=== PATIENT | male | born 1965 | race African-American/Black ===

== ENCOUNTER 2017-05-21 01:46 | Inpatient (IN) ==
[2017-05-21] MEDS ORDERED: methylPREDNISolone SOD SUC 125 MG/2 ML VIAL IV STA (02:57)
[2017-05-21] MEDS ORDERED: ALBUTEROL NEB SOLN 5 MG/ML 20 ML/BOTTLE CONT NEB STA (03:06)
[2017-05-21] MEDS ORDERED: methylPREDNISolone SOD SUC 125 MG/2 ML VIAL ONE (03:10)
[2017-05-21 04:01] LABS: Basophils % 0.3 % (0.0-0.8); Eosinophils # 0.4 10*3/uL (0.0-0.87); Hemoglobin 13.3 GM/DL (14.0-18.0); Immature Granulocytes % 0.4 %; Immature Granulocytes Absolute 0.04 #; Lymphocytes # 2.6 10*3/uL (1.4-4.0); Mean Corpuscular HGB Conc 34.1 GM/DL (32-36); Mean Corpuscular Hemoglobin 30 PG (27-34); Mean Corpuscular Volume 87.1 FL (87-102); Mean Platelet Volume 11.6 FL (9.6-12.0); Monocytes # 0.8 10*3/uL (0.11-0.8); Monocytes % 7.4 % (1.7-12.7); Neutrophils # 6.9 10*3/uL (1.4-7.4); Neutrophils % 63.9 % (38.7-73.9); Platelet Count 210 T/CUMM (130-400); Red Blood Count 4.48 MC/CUMM (3.8-5.5); White Blood Count 10.8 T/CUMM (4-12)
[2017-05-21 04:49] LABS: Alanine Aminotransferase 34 U/L (16-61); Albumin 3.4 G/DL (3.4-5.0); Alkaline Phosphatase 97 U/L (45-117); Aspartate Amino Transferase 19 U/L (0-37); Bilirubin,Total < 0.39 MG/DL (0.2-1.0); Blood Urea Nitrogen 18 MG/DL (7-18); Glucose 97 MG/DL (74-106); Osmolality,Calculated 284.1 MOS/KG (273-304); Potassium 4.1 MMOL/L (3.5-5.1); Sodium 142 MMOL/L (136-145); Total Protein 6.3 G/DL (6.4-8.3)
[2017-05-21 04:51] LABS: Troponin I Only < 0.015 NG/ML (0.00-0.045)
[2017-05-21] MEDS ORDERED: cefTRIAXone 1,000 MG in SODIUM CHLORIDE 0.9% 100 ML IV STA (05:22)
[2017-05-21] MEDS ORDERED: AZITHROMYCIN INJ 500 MG in SODIUM CHLORIDE 0.9% 250 ML IV STA (05:22)
[2017-05-21] MEDS ORDERED: AZITHROMYCIN 500 MG VIAL IV ONE (05:25)
[2017-05-21] MEDS ORDERED: cefTRIAXone 1,000 MG VIAL ONE (05:26)
[2017-05-21] MEDS ORDERED: ALBUTEROL 2.5 MG/3 ML NEB RESP TX PRN (05:46)
[2017-05-21] MEDS ORDERED: ACETAMINOPHEN 325 MG TABLET PO PRN (05:54)
[2017-05-21] MEDS ORDERED: ONDANSETRON 4 MG/2 ML VIAL IV PRN (05:54)
[2017-05-21] MEDS: ALBUTEROL 2.5 MG/3 ML NEB RESP TX SCH ×4 (09:05→21:35)
[2017-05-21] MEDS: methylPREDNISolone SOD SUC 125 MG/2 ML VIAL IV SCH ×3 (10:49→21:15)
[2017-05-21] MEDS: PANTOPRAZOLE 40 MG TABLET PO SCH (10:50)
[2017-05-21] MEDS: ENOXAPARIN 40 MG/0.4 ML SYRINGE SUBCUT SCH (10:50)
[2017-05-21] MEDS: risperiDONE 1 MG TABLET PO SCH ×2 (10:50→21:15)
[2017-05-21] MEDS: amLODIPine 5 MG TABLET PO SCH (10:50)
[2017-05-21] MEDS: MONTELUKAST 10 MG TABLET PO SCH (21:15)
[2017-05-22] MEDS: ALBUTEROL 2.5 MG/3 ML NEB RESP TX SCH ×6 (00:44→21:19)
[2017-05-22] MEDS: methylPREDNISolone SOD SUC 125 MG/2 ML VIAL IV SCH ×4 (03:29→21:52)
[2017-05-22 03:49] LABS: Basophils % 0.1 % (0.0-0.8); Hematocrit 40.7 VOL% (42.0-52.0); Hemoglobin 13.8 GM/DL (14.0-18.0); Immature Granulocytes % 1.4 %; Immature Granulocytes Absolute 0.22 #; Lymphocytes # 0.9 10*3/uL (1.4-4.0); Lymphocytes % 5.3 % (21.2-54.2); Mean Corpuscular HGB Conc 33.9 GM/DL (32-36); Mean Corpuscular Hemoglobin 29 PG (27-34); Mean Corpuscular Volume 86.8 FL (87-102); Monocytes # 0.4 10*3/uL (0.11-0.8); Monocytes % 2.2 % (1.7-12.7); Neutrophils # 14.7 10*3/uL (1.4-7.4); Platelet Count 220 T/CUMM (130-400); Red Blood Count 4.69 MC/CUMM (3.8-5.5); Red Cell Distribution Width 15.1 % (9.3-17.3); White Blood Count 16.2 T/CUMM (4-12)
[2017-05-22 04:02] LABS: Calcium 8.5 MG/DL (8.5-10.1); Osmolality,Calculated 284.4 MOS/KG (273-304); Potassium 4.3 MMOL/L (3.5-5.1)
[2017-05-22 05:31] LABS: Band Neutrophils 2 % (0-10); Hypochromasia 1+; Lymphocytes 6 % (20-55); Microcytosis 1+; Platelet Estimate Normal; Segmented Neutrophils 88 % (50-85); Total Cells Counted 100
[2017-05-22] MEDS ORDERED: AZITHROMYCIN INJ 500 MG in SODIUM CHLORIDE 0.9% 250 ML IV SCH (06:00)
[2017-05-22] MEDS: cefTRIAXone 1,000 MG in SYRINGE 1 EACH IV SCH (06:33)
[2017-05-22] MEDS: ENOXAPARIN 40 MG/0.4 ML SYRINGE SUBCUT SCH (06:37)
[2017-05-22] MEDS: risperiDONE 1 MG TABLET PO SCH ×2 (09:04→21:51)
[2017-05-22] MEDS: PANTOPRAZOLE 40 MG TABLET PO SCH (09:04)
[2017-05-22] MEDS: amLODIPine 5 MG TABLET PO SCH (09:04)
[2017-05-22] MEDS ORDERED: AMINOPHYLLINE 250 MG in SODIUM CHLORIDE 0.9% 100 ML IV ONE (10:01)
[2017-05-22] MEDS: AMINOPHYLLINE 500 MG in SODIUM CHLORIDE 0.9% 480 ML IV SCH ×2 (13:17→21:54)
[2017-05-22] MEDS: MONTELUKAST 10 MG TABLET PO SCH (21:51)
[2017-05-23] MEDS: ALBUTEROL 2.5 MG/3 ML NEB RESP TX SCH ×5 (01:09→15:18)
[2017-05-23] MEDS: methylPREDNISolone SOD SUC 125 MG/2 ML VIAL IV SCH ×4 (03:20→20:25)
[2017-05-23] MEDS: ENOXAPARIN 40 MG/0.4 ML SYRINGE SUBCUT SCH (05:50)
[2017-05-23] MEDS: AMINOPHYLLINE 500 MG in SODIUM CHLORIDE 0.9% 480 ML IV SCH ×2 (05:51→17:07)
[2017-05-23] MEDS: cefTRIAXone 1,000 MG in SYRINGE 1 EACH IV SCH (05:52)
[2017-05-23] MEDS: amLODIPine 5 MG TABLET PO SCH (08:17)
[2017-05-23] MEDS: risperiDONE 1 MG TABLET PO SCH ×2 (08:18→20:24)
[2017-05-23] MEDS: PANTOPRAZOLE 40 MG TABLET PO SCH (08:18)
[2017-05-23] MEDS ORDERED: AZITHROMYCIN 250 MG TABLET PO SCH (09:00)
[2017-05-23] MEDS: PIPERACILLIN/TAZOBACTAM 3,375 MG in SODIUM CHLORIDE 0.9% 100 ML IV SCH (18:58)
[2017-05-23] MEDS: BUDESONIDE 0.5 MG/2 ML NEB RESP TX SCH (20:03)
[2017-05-23] MEDS: ALBUTEROL/IPRATROPIUM 3 ML NEB RESP TX SCH ×2 (20:03→23:47)
[2017-05-23] MEDS: MONTELUKAST 10 MG TABLET PO SCH (20:24)
[2017-05-24] MEDS: PIPERACILLIN/TAZOBACTAM 3,375 MG in SODIUM CHLORIDE 0.9% 100 ML IV SCH ×3 (01:13→17:21)
[2017-05-24] MEDS: AMINOPHYLLINE 500 MG in SODIUM CHLORIDE 0.9% 480 ML IV SCH ×4 (01:15→20:02)
[2017-05-24] MEDS: methylPREDNISolone SOD SUC 125 MG/2 ML VIAL IV SCH ×4 (03:03→20:04)
[2017-05-24] MEDS: ALBUTEROL/IPRATROPIUM 3 ML NEB RESP TX SCH ×5 (03:57→19:29)
[2017-05-24] MEDS: ENOXAPARIN 40 MG/0.4 ML SYRINGE SUBCUT SCH (06:07)
[2017-05-24 06:34] LABS: Basophils % 0.1 % (0.0-0.8); Hematocrit 40.3 VOL% (42.0-52.0); Hemoglobin 13.2 GM/DL (14.0-18.0); Immature Granulocytes % 2.2 %; Immature Granulocytes Absolute 0.37 #; Lymphocytes % 5.6 % (21.2-54.2); Mean Corpuscular HGB Conc 32.8 GM/DL (32-36); Mean Corpuscular Hemoglobin 29 PG (27-34); Mean Corpuscular Volume 87.4 FL (87-102); Mean Platelet Volume 11.4 FL (9.6-12.0); Monocytes # 0.5 10*3/uL (0.11-0.8); Monocytes % 2.7 % (1.7-12.7); Neutrophils # 15.3 10*3/uL (1.4-7.4); Neutrophils % 89.4 % (38.7-73.9); Platelet Count 216 T/CUMM (130-400); Red Blood Count 4.61 MC/CUMM (3.8-5.5); White Blood Count 17.1 T/CUMM (4-12)
[2017-05-24] MEDS: BUDESONIDE 0.5 MG/2 ML NEB RESP TX SCH ×2 (07:28→19:29)
[2017-05-24 08:58] LABS: Allen Test Positive
[2017-05-24 09:00] LABS: ABG Base Excess 3.3 MMOL/L (-2.5-2.5); ABG HCO3 27.4 MMOL/L (20-26); ABG PCO2 40.9 MM HG (35-48); ABG PO2 85.2 MM HG (80-95)
[2017-05-24] MEDS: risperiDONE 1 MG TABLET PO SCH ×2 (09:12→20:04)
[2017-05-24] MEDS: PANTOPRAZOLE 40 MG TABLET PO SCH (09:12)
[2017-05-24] MEDS: amLODIPine 5 MG TABLET PO SCH (09:14)
[2017-05-24] MEDS: MONTELUKAST 10 MG TABLET PO SCH (20:04)
[2017-05-25] MEDS: ALBUTEROL/IPRATROPIUM 3 ML NEB RESP TX SCH ×6 (00:07→19:44)
[2017-05-25] MEDS: PIPERACILLIN/TAZOBACTAM 3,375 MG in SODIUM CHLORIDE 0.9% 100 ML IV SCH ×2 (01:12→10:18)
[2017-05-25] MEDS: methylPREDNISolone SOD SUC 125 MG/2 ML VIAL IV SCH ×4 (02:42→18:21)
[2017-05-25] MEDS: ENOXAPARIN 40 MG/0.4 ML SYRINGE SUBCUT SCH (05:41)
[2017-05-25] MEDS: AMINOPHYLLINE 500 MG in SODIUM CHLORIDE 0.9% 480 ML IV SCH ×2 (05:41→15:49)
[2017-05-25 06:34] LABS: Basophils % 0.2 % (0.0-0.8); Hematocrit 39.1 VOL% (42.0-52.0); Hemoglobin 13.1 GM/DL (14.0-18.0); Immature Granulocytes % 3.1 %; Immature Granulocytes Absolute 0.51 #; Lymphocytes # 0.9 10*3/uL (1.4-4.0); Lymphocytes % 5.6 % (21.2-54.2); Mean Corpuscular HGB Conc 33.5 GM/DL (32-36); Mean Corpuscular Hemoglobin 29 PG (27-34); Mean Corpuscular Volume 86.3 FL (87-102); Mean Platelet Volume 11.7 FL (9.6-12.0); Monocytes # 0.5 10*3/uL (0.11-0.8); Monocytes % 2.8 % (1.7-12.7); Neutrophils # 14.4 10*3/uL (1.4-7.4); Neutrophils % 88.3 % (38.7-73.9); Platelet Count 200 T/CUMM (130-400); Red Blood Count 4.53 MC/CUMM (3.8-5.5); Red Cell Distribution Width 14.9 % (9.3-17.3); White Blood Count 16.3 T/CUMM (4-12)
[2017-05-25] MEDS: BUDESONIDE 0.5 MG/2 ML NEB RESP TX SCH ×2 (07:13→19:44)
[2017-05-25 07:58] LABS: Platelet Estimate Normal
[2017-05-25] MEDS: PANTOPRAZOLE 40 MG TABLET PO SCH (10:18)
[2017-05-25] MEDS: amLODIPine 5 MG TABLET PO SCH (10:18)
[2017-05-25] MEDS: risperiDONE 1 MG TABLET PO SCH ×2 (10:18→22:29)
[2017-05-25] MEDS: cefTRIAXone 1,000 MG in SYRINGE 1 EACH IV SCH (18:22)
[2017-05-25] MEDS: MONTELUKAST 10 MG TABLET PO SCH (22:29)
[2017-05-26] MEDS: ALBUTEROL/IPRATROPIUM 3 ML NEB RESP TX SCH ×3 (00:05→14:40)
[2017-05-26] MEDS: methylPREDNISolone SOD SUC 40 MG/1 ML VIAL IV SCH ×2 (05:38→17:35)
[2017-05-26] MEDS: ENOXAPARIN 40 MG/0.4 ML SYRINGE SUBCUT SCH (05:38)
[2017-05-26 06:44] LABS: Basophils % 0.2 % (0.0-0.8); Hematocrit 39.2 VOL% (42.0-52.0); Hemoglobin 12.8 GM/DL (14.0-18.0); Immature Granulocytes % 2.5 %; Immature Granulocytes Absolute 0.44 #; Lymphocytes # 1.7 10*3/uL (1.4-4.0); Lymphocytes % 9.7 % (21.2-54.2); Mean Corpuscular HGB Conc 32.7 GM/DL (32-36); Mean Corpuscular Hemoglobin 29 PG (27-34); Mean Corpuscular Volume 88.1 FL (87-102); Mean Platelet Volume 11.5 FL (9.6-12.0); Monocytes # 0.7 10*3/uL (0.11-0.8); Monocytes % 3.7 % (1.7-12.7); NRBC # 0.04 10*3/uL; Neutrophils % 83.9 % (38.7-73.9); Platelet Count 223 T/CUMM (130-400); Red Blood Count 4.45 MC/CUMM (3.8-5.5); Red Cell Distribution Width 14.9 % (9.3-17.3); White Blood Count 17.9 T/CUMM (4-12)
[2017-05-26 07:17] LABS: Magnesium 2.3 MG/DL (1.8-2.4); Osmolality,Calculated 284.1 MOS/KG (273-304); Potassium 3.7 MMOL/L (3.5-5.1)
[2017-05-26] MEDS: methylPREDNISolone SOD SUC 125 MG/2 ML VIAL IV SCH (07:43)
[2017-05-26] MEDS: BUDESONIDE 0.5 MG/2 ML NEB RESP TX SCH (07:54)
[2017-05-26] MEDS: amLODIPine 5 MG TABLET PO SCH (08:53)
[2017-05-26] MEDS: risperiDONE 1 MG TABLET PO SCH (08:53)
[2017-05-26] MEDS: PANTOPRAZOLE 40 MG TABLET PO SCH (08:53)
[2017-05-26] MEDS ORDERED: BUDESONIDE/FORMOTEROL 160-4.5 INHALER 6 GM INH SCH (10:30)
[2017-05-26 12:20] VITALS: BP 136/79
[2017-05-26] MEDS: cefTRIAXone 1,000 MG in SYRINGE 1 EACH IV SCH (16:13)
== END 2017-05-26 16:11 | disposition home or self-care (01) | DRG 202 ==
LOC: EDUNIT# 01:46 → EDBD 01:46 → N.ED 01:46 → N.EDINP 05:44 → SUATTDRO 05:44 → N.5E 06:43
PROVIDERS: ADMIT Internal Medicine; ATTEND Internal Medicine